=== PATIENT | female | born 1970 | race Caucasian/White ===

== ENCOUNTER 2017-08-13 21:19 | Emergency (ER) | payer OTHER ==
[2017-08-13] MEDS ORDERED: Diphtheria,Pertussis(Acell),Tetanus Vaccine 0.5 ML SDV IM ONE (21:45)
[2017-08-13] MEDS ORDERED: Amoxicillin/Clavulanate K 875-125 MG Tab PO ONE (21:45)
[2017-08-13] MEDS ORDERED: Ibuprofen 600 MG Tab PO ONE (21:45)
--- NOTE | 2017-08-13 21:50 | EDM.PDOC ---
ED HPI GENERAL MEDICAL PROBLEM - General Chief Complaint: Bite:Animal, Insect Stated Complaint: Cat bite Time Seen by Provider: 08/13/17 21:30 Source of Information: Reports: Patient, RN Notes Reviewed History Limitations: Reports: No Limitations - History of Present Illness INITIAL COMMENTS - FREE TEXT/NARRATIVE: 46 year old female presents to the ED due to left arm pain and discomfort after being bit and scratched by her cat about 1.5 hours GRADUATE STUDENT. The pain radiates from her wrist up towards her shoulder. She has a superficial abrasion to her wrist where the cat bit her. She also has some superficial scratches on her forearm and right hand. She has no red streaking. No numbness, tingling, fever or chills. The cat is hers and is up to date on rabies vaccination. She is unsure of her last tetanus but says it's likely been more than 5 years. She has no allergies to medications. Bilateral Hand Pain Score (Numeric/FACES): 5 - Related Data Allergies Allergy/AdvReac Type Severity Reaction Status Date / Time No Known Allergies Allergy Verified 08/13/17 21:28 Home Meds: Home Meds Amoxicillin/Potassium Clav [Augmentin 875-125 Tablet] 1 each PO BID #14 tablet 08/13/17 [Rx] Clonezepam 0.5 mg PO DAILY 08/13/17 [History] Gabepentin 1 tab PO BID 08/13/17 [History] PARoxetine HCl [Paxil] 30 mg PO DAILY 08/13/17 [History] Venlafaxine [Effexor] 150 mg PO DAILY 08/13/17 [History] Past Medical History Musculoskeletal History: Reports: Other (See Below) Other Musculoskeletal History: back surgery Psychiatric History: Reports: Anxiety, Depression - Past Surgical History HEENT Surgical History: Reports: Adenoidectomy, Oral Surgery, Tonsillectomy Female Surgical History: Reports: Hysterectomy Social & Family History - Tobacco Use Smoking Status *Q: Never Smoker - Caffeine Use Caffeine Use: Reports: Coffee - Recreational Drug Use Recreational Drug Use: No ED ROS GENERAL - Review of Systems Review Of Systems: See Below Constitutional: Reports: No Symptoms. Denies: Fever, Chills Musculoskeletal: Reports: Arm Pain Skin: Reports: Wound Neurological: Reports: No Symptoms. Denies: Numbness, Tingling, Weakness ED EXAM, ANIMAL BITE - Physical Exam Exam: See Below Exam Limited By: No Limitations General Appearance: Alert, WD/WN, No Apparent Distress Respiratory/Chest: No Respiratory Distress, Lungs Clear Cardiovascular: Regular Rate, Rhythm Extremities: Normal Inspection, Normal Range of Motion, Non-Tender, Other (No streaking or swelling. ). No: Increased Warmth, Redness Neurological: Alert, Normal Cognition, No Motor/Sensory Deficits, Other (gamma facilities operator strengths are strong and equal bilaterally. No bony abnormality or bony point tenderness. no swelling. ) Skin Exam: Other (superficial abrasion to left wrist. no sutures needed. She has no erythema or streaking. Neurovascular status intact. ) Course - Vital Signs Last Recorded V/S: Last Vital Signs Temp 96.7 F 08/13/17 21:34 Pulse 64 08/13/17 21:34 Resp 20 08/13/17 21:34 BP 114/78 08/13/17 21:34 Pulse Ox 99 08/13/17 21:34 - Re-Assessments/Exams Free Text/Narrative Re-Assessment/Exam: Exam unremarkable except for superficial abrasion. Will treat with Augmentin 1 tab PO BIDx7 days, first dose given in ED. Tdap updated. Ibuprofen provided for pain. Educated on return precautions. Discharge instructions as documented. Departure - Departure Time of Disposition: 21:50 Disposition: Home, Self-Care 01 Condition: Good Clinical Impression: Cat bite involving extremity, Tetanus toxoid inoculation - Discharge Information Prescriptions: Amoxicillin/Potassium Clav [Augmentin 875-125 Tablet] 1 each PO BID #14 tablet Referrals: Maco Christianson MD [Primary Care Provider] - Additional Instructions: Cool compresses for comfort Ibuprofen 600mg every 6-8 hours alternating with Tylenol every 4-6 hours. Augmentin 1 tab twice a day for 7 days Return to ER with new or worsening symptoms, fever, drainage, increasing pain, or additional concerns.
== END 2017-08-13 22:20 | disposition home or self-care (01) ==
LOC: JD.ED 21:19
DX: S60.812A Abrasion of left wrist, initial encounter (principal); S50.811A Abrasion of right forearm, initial encounter; S60.511A Abrasion of right hand, initial encounter; F32.9 Major depressive disorder, single episode, unspecified; Z79.899 Other long term (current) drug therapy; Z23 Encounter for immunization; W55.01XA Bitten by cat, initial encounter
CPT/HCPCS: 90471; 90715; 99283; A9270

== ENCOUNTER 2018-03-13 09:34 | Emergency (ER) | payer OTHER ==
--- NOTE | 2018-03-13 09:55 | EDM.PDOC ---
ED HPI GENERAL MEDICAL PROBLEM - General Chief Complaint: Lower Extremity Injury/Pain Stated Complaint: R KNEE PAIN Time Seen by Provider: 03/13/18 09:54 - History of Present Illness INITIAL COMMENTS - FREE TEXT/NARRATIVE: 47-year-old female presents to the emergency room with right leg and knee pain. She is uncertain if this is coming from her back. She has had a herniated disc in the past and was recently had steroid injections. Patient denies any radiating pain from her back. No loss of bowel or bladder control. She denies any recent injury to her leg or to her back. She does describe a sensation where he knee will lock up and try and give out, where she has a sensation that she might fall. She has noted some swelling in her calf. Right Knee Pain Score (Numeric/FACES): 6 - Related Data Allergies Allergy/AdvReac Type Severity Reaction Status Date / Time No Known Allergies Allergy Verified 08/13/17 21:28 Home Meds: Home Meds PARoxetine HCl [Paxil] 30 mg PO DAILY 08/13/17 [History] Venlafaxine [Effexor] 150 mg PO DAILY 08/13/17 [History] ClonazePAM [KlonoPIN] 0.5 mg PO DAILY 03/13/18 [History] Gabapentin [Neurontin] 100 mg PO DAILY 03/13/18 [History] Past Medical History Musculoskeletal History: Reports: Other (See Below) Other Musculoskeletal History: back surgery Psychiatric History: Reports: Anxiety, Depression - Past Surgical History HEENT Surgical History: Reports: Adenoidectomy, Oral Surgery, Tonsillectomy Female Surgical History: Reports: Hysterectomy Social & Family History - Tobacco Use Smoking Status *Q: Never Smoker - Caffeine Use Caffeine Use: Reports: Coffee - Recreational Drug Use Recreational Drug Use: No Review of Systems - Review of Systems Review Of Systems: See Below Constitutional: Reports: No Symptoms Mouth/Throat: Reports: No Symptoms Respiratory: Reports: No Symptoms Cardiovascular: Reports: No Symptoms GI/Abdominal: Reports: No Symptoms Genitourinary: Reports: No Symptoms ED EXAM, GENERAL - Physical Exam Exam: See Below Exam Limited By: No Limitations General Appearance: Alert, No Apparent Distress Neck: Normal Inspection, Supple, Non-Tender. No: Lymphadenopathy (L), Lymphadenopathy (R), Tender Lateral, Tender Midline Respiratory/Chest: No Respiratory Distress, Lungs Clear, Normal Breath Sounds Cardiovascular: Regular Rate, Rhythm, No Edema, No Murmur Back Exam: Normal Inspection, Other (Distracted straight leg raises are unremarkable patient could set up with her legs fully extended without any sort of difficulty discomfort or pins and needles sensation in her extremities ). No : CVA Tenderness (L), CVA Tenderness (R), Vertebral Tenderness Extremities: Other (Urination her right leg shows no redness or obvious swelling she has some vague discomfort in the calf. Examination of her knee shows intact ACL MCL and LCL. Meniscal testing is somewhat difficult however she doesn't really have significant joint line discomfort. Her discomforts over the anterior lateral aspect of her patella and posteriorly she does have discomfort in the posterior aspect of her knee was potential swelling.) Course - Vital Signs Last Recorded V/S: Last Vital Signs Temp 36.7 C 03/13/18 09:50 Pulse 70 03/13/18 09:50 Resp 20 03/13/18 09:50 BP 127/81 03/13/18 09:50 Pulse Ox 98 03/13/18 09:50 - Orders/Labs/Meds Orders: Active Orders 24 hr Category Date Time Status Knee 3V Rt [CR] Stat Exams 03/13/18 10:04 Taken Labs: Laboratory Tests 03/13/18 Range/Units 11:25 D-Dimer, Quantitative < 0.19 L (0.19-0.50) mg/L Meds: Medications Discontinued Medications Generic Name Dose Route Start Last Admin Trade Name Alondra PRN Reason Stop Dose Admin Fluorescein Sodium Confirm 03/13/18 11:07 03/13/18 11:18 Ful-Leora Administered 03/13/18 11:08 Not Given Dose 0.6 mg .ROUTE .STK-MED ONE Ibuprofen 600 mg 03/13/18 12:17 03/13/18 12:21 Motrin PO 03/13/18 12:18 600 mg ONETIME STA Administration - Re-Assessments/Exams Free Text/Narrative Re-Assessment/Exam: 03/13/18 11:31 X-ray of her knee shows no acute changes she's had some patellar tracking issues with her regular joint spacing. Because of her pain is not clearly understood we'll check a d-dimer think it's low likely that her symptoms represent venous thrombosis. 03/13/18 12:36 D-dimer negative we will discharge her home with crutches. Discussed the knee immobilizer but this is getting to be difficult for her. Recommend orthopedic follow-up. Departure - Departure Time of Disposition: 12:37 Disposition: Home, Self-Care 01 Clinical Impression: Right knee pain - Discharge Information Referrals: Maco Christianson MD [Primary Care Provider] - Berny Garcia MD [Physician] - Forms: ED Department Discharge Additional Instructions: Use the crutches. Follow-up with Dr. Garcia to this next week Continue the ibuprofen. Return to the emergency room with any questions problems or worsening symptoms - My Orders Last 24 Hours: My Active Orders 03/13/18 10:04 Knee 3V Rt [CR] Stat - Assessment/Plan Last 24 Hours: My Active Orders 03/13/18 10:04 Knee 3V Rt [CR] Stat
[2018-03-13] MEDS ORDERED: Fluorescein 0.6 MG Ophth Strip ONE (11:07)
[2018-03-13] MEDS ORDERED: Ibuprofen 600 MG Tab PO STA (12:17)
--- NOTE | 2018-03-15 11:14 | CR ---
Right knee: AP, lateral and sunrise patellar views of the right knee were obtained. Comparison: No prior knee exam. Medial and lateral joint spaces are maintained in height. Minimal joint effusion is seen. Right patellofemoral joint appears within normal limits. No fracture or other abnormality is identified. Impression: 1. Small joint effusion. 2. No additional abnormality is appreciated on three-view right knee exam. Diagnostic code #2
== END 2018-03-13 12:45 | disposition home or self-care (01) ==
LOC: JD.ED 09:34
DX: M25.561 Pain in right knee (principal); F41.9 Anxiety disorder, unspecified; F32.9 Major depressive disorder, single episode, unspecified; Z79.899 Other long term (current) drug therapy
CPT/HCPCS: 36415; 73562; 85379; 99284; A9270; 99283

== ENCOUNTER 2018-09-20 08:12 | Inpatient (IN) | payer OTHER ==
[~2018-09-20 08:12] MED LIST: Acetaminophen 325 MG Tab PO SCH; Bisacodyl 5 MG Tab PO PRN; EPINEPHrine 1 MG/ML SDV ONE; Ketamine 500 mg/10 ML MDV ONE; Lactated Ringers 1,000 ML IV SCH; Lidocaine 1% 4 ML ONE; Lidocaine 1%/Sod Bicarbonate in NS 8.4% 1 ML Syringe IDERM PRN; Magnesium Hydroxide 400 MG/5 ML Susp 30 ML Cup PO PRN; Midazolam 1 MG/ML 2 ML SDV ONE; Morphine 2 MG/ML Syringe IVPUSH PRN; Naloxone 0.4 MG/ML SDV IVPUSH PRN; Ondansetron 4 MG/2 ML SDV IVPUSH PRN; Pregabalin 25 MG Cap PO SCH; Propofol 200 MG/20 ML SDV ONE; Ropivacaine 0.5% 5 MG/ML 30 ML SDV ONE; Sennosides 8.6 MG Tab PO PRN; Sodium Chloride 0.9% 10 ML Syringe FLUSH PRN; fentaNYL 100 MCG/2 ML SDV ONE; oxyCODONE ER 10 MG TAB.ER PO SCH
[2018-09-20] MEDS ORDERED: Dexamethasone 4 MG/ML SDV ONE (08:13)
[2018-09-20] MEDS ORDERED: Ondansetron 4 MG/2 ML SDV ONE (08:13)
[2018-09-20] MEDS ORDERED: Lactated Ringers 1,000 ML ONE (08:13)
[2018-09-20] MEDS ORDERED: ceFAZolin 1 GM Vial ONE (08:13)
[2018-09-20] MEDS ORDERED: Ketorolac 30 MG/ML SDV ONE (08:14)
[2018-09-20] MEDS ORDERED: Scopolamine 1.5 MG Transdermal Patch TRDERM ONE (08:53)
[2018-09-20] MEDS: Bupivacaine 0.25% 30 ML SDV ONE ×2 (09:57→10:17)
[2018-09-20] MEDS: ceFAZolin 1 GM Vial ONE ×2 (09:57→10:14)
[2018-09-20] MEDS: Iodine/Sodium Iodide 2% Tincture 30 ML Bottle ONE ×2 (09:58→10:11)
[2018-09-20] MEDS: Vancomycin 1 GM SDV ONE ×2 (10:00→10:20)
[2018-09-20] MEDS ORDERED: diphenhydrAMINE 50 MG/ML SDV IVPUSH PRN (10:01)
[2018-09-20] MEDS ORDERED: Ondansetron 4 MG/2 ML SDV IVPUSH PRN (10:01)
[2018-09-20] MEDS ORDERED: fentaNYL 100 MCG/2 ML SDV IVPUSH PRN (10:01)
--- NOTE | 2018-09-20 10:01 | PCM.PREANE ---
Preanesthetic Assessment - Anesthesia/Transfusion/Family Hx Anesthesia History: Prior Anesthesia Without Reaction Family History of Anesthesia Reaction: No Transfusion History: Prior Transfusion Without Reaction - Review of Systems General: No Symptoms Pulmonary: No Symptoms Cardiovascular: No Symptoms Gastrointestinal: No Symptoms Neurological: Pre-Existing Deficit (Chronic Back pain. History of Back fusion "lower spine sacral/lumbar". Currently recieves injections to help with back pain. ) Other: Reports: Depression, Anxiety - Physical Assessment NPO Status Date: 09/19/18 NPO Status Time: 23:00 O2 Sat by Pulse Oximetry: 100 Respiratory Rate: 16 Vital Signs: Last Vital Signs Temp 36.8 C 09/20/18 08:20 Pulse 81 09/20/18 08:20 Resp 16 09/20/18 08:20 BP 128/85 09/20/18 08:20 Pulse Ox 100 09/20/18 08:20 Height: 1.55 m Weight: 63.957 kg ASA Class: 2 Mental Status: Alert & Oriented x3 Airway Class: Mallampati = 1 Dentition: Reports: Caries Thyro-Mental Finger Breadths: 2 Mouth Opening Finger Breadths: 3 ROM/Head Extension: Full Lungs: Clear to Auscultation, Normal Respiratory Effort Cardiovascular: Regular Rate, Regular Rhythm - Allergies Allergies/Adverse Reactions: Allergies Allergy/AdvReac Type Severity Reaction Status Date / Time No Known Allergies Allergy Verified 09/17/18 11:15 - Acknowledgements Anesthesia Type Planned: Spinal, Regional Block (Adductor Canal Block Post Op) Pt an Appropriate Candidate for the Planned Anesthesia: Yes Alternatives and Risks of Anesthesia Discussed w Pt/Guardian: Yes Pt/Guardian Understands and Agrees with Anesthesia Plan: Yes PreAnesthesia Questionnaire HEENT History: Reports: Allergic Rhinitis, Impaired Vision, Other (See Below) Other HEENT History: Patient wears eye glasses and/or contact lenses. 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 (See Below) Other OB/BYN History: Hysterectomy with bilateral salpingectomy and oophoretomy Musculoskeletal History: Reports: Back Pain, Chronic, Osteoarthritis Other Musculoskeletal History: back surgery Psychiatric History: Reports: Depression Endocrine/Metabolic History: Reports: Diabetes, Gestational Other Endocrine/Metabolic History: Lumbar DDD - Past Surgical History HEENT Surgical History: Reports: Adenoidectomy, Tonsillectomy, Other (See Below) Other HEENT Surgeries/Procedures: Tube placement Cardiovascular Surgical History: Reports: None Respiratory Surgical History: Reports: None GI Surgical History: Reports: None Female Surgical History: Reports: Hysterectomy Endocrine Surgical History: Reports: None Neurological Surgical History: Reports: Lumbar Spine Other Neurological Surgeries/Procedures: Lumbar back surgery Dermatological Surgical History: Reports: None - SUBSTANCE USE Tobacco Use Within Last Twelve Months: No Days Per Week of Alcohol Use: 1 Number of Drinks Per Day: 0 Total Drinks Per Week: 0 Recreational Drug Use History: No - HOME MEDS Home Medications: Home Meds PARoxetine HCl [Paxil] 20 mg PO DAILY 08/13/17 [History] Venlafaxine [Effexor] 150 mg PO DAILY 08/13/17 [History] RX: ClonazePAM [KlonoPIN] 0.5 mg PO BEDTIME 03/13/18 [History] Acetaminophen [Tylenol] 1 - 2 tab PO Q4H PRN 09/17/18 [History] Calcium Carb/Magnesium Oxid/D3 [Calcium Magnesium + D] 1 tab PO DAILY 09/17/18 [ History] Ergocalciferol (Vitamin D2) [Vitamin D2] 4,000 unit PO DAILY 09/17/18 [History] - CURRENT (IN HOUSE) MEDS Current Meds: Current Medications Acetaminophen (Tylenol) 975 mg PO ONETIME [facility] Stop: 09/20/18 16:00 Last Admin: 09/20/18 08:22 Dose: 975 mg Aspirin (Ecotrin) 325 mg PO BID LUIZ Bisacodyl (Dulcolax) 5 mg PO DAILY PRN PRN Reason: Constipation Morphine Sulfate 8 mg/Epinephrine HCl 0.3 mg/Cefuroxime Sodium 750 mg/Ketorolac Tromethamine 30 mg/Sodium Chloride 27.9 ml 0 mg .XX ONETIME ONE Stop: 09/20/18 10:06 Cyclobenzaprine HCl (Flexeril) 10 mg PO TID PRN PRN Reason: Spasms Docusate Sodium (Colace) 100 mg PO BID LUIZ Famotidine (Pepcid) 20 mg PO Q12H LUIZ Lactated Ringer's (Ringers, Lactated) 1,000 mls @ 125 mls/hr IV ASDIRECTED LUIZ Stop: 09/20/18 23:00 Last Admin: 09/20/18 08:40 Dose: 125 mls/hr Cefazolin Sodium/Dextrose 2 gm (/ Premix) 50 mls @ 100 mls/hr IV Q8H [facility] Stop: 09/21/18 10:29 Ketorolac Tromethamine (Toradol) 15 mg IVPUSH Q6H PRN PRN Reason: Pain Lidocaine/Sodium Bicarbonate (Buffered Lidocaine 1% In Ns 8.4%) 0.25 ml IDERM ONETIME PRN PRN Reason: Prior to IV Start Stop: 09/20/18 18:00 Last Admin: 09/20/18 08:40 Dose: 0.25 ml Magnesium Hydroxide (Milk Of Magnesia) 30 ml PO BID PRN PRN Reason: Constipation Morphine Sulfate (Morphine) 2 mg IVPUSH Q2H PRN PRN Reason: Breakthrough Pain Naloxone HCl (Narcan) 0.1 mg IVPUSH Q5M PRN PRN Reason: Oversedation Ondansetron HCl (Zofran) 4 mg IVPUSH Q6H PRN PRN Reason: Nausea/Vomiting Oxycodone HCl (Oxycontin) 10 mg PO ONETIME [facility] Stop: 09/20/18 16:00 Last Admin: 09/20/18 08:21 Dose: 10 mg Oxycodone/Acetaminophen (Percocet 325-5 Mg) 1 - 2 tab PO Q4H PRN PRN Reason: Pain Pregabalin (Lyrica) 50 mg PO ONETIME [facility] Stop: 09/20/18 16:00 Last Admin: 09/20/18 08:22 Dose: 50 mg Senna (Senna) 8.6 mg PO BID PRN PRN Reason: Constipation Sodium Chloride (Saline Flush) 10 ml FLUSH ASDIRECTED PRN PRN Reason: Keep Vein Open Stop: 09/20/18 18:00 Discontinued Medications Bupivacaine HCl (Marcaine 0.25%) Confirm Administered Dose 30 ml .ROUTE .STK- MED ONE Stop: 09/20/18 08:21 Cefazolin Sodium (Ancef) Confirm Administered Dose 2 gm .ROUTE .STK-MED ONE Stop: 09/20/18 08:14 Cefazolin Sodium (Ancef) Confirm Administered Dose 2 gm .ROUTE .STK-MED ONE Stop: 09/20/18 08:21 Dexamethasone (Dexamethasone) Confirm Administered Dose 8 mg .ROUTE .STK-MED ONE Stop: 09/20/18 08:14 Epinephrine HCl (Adrenalin) Confirm Administered Dose 1 mg .ROUTE .STK-MED ONE Stop: 09/20/18 07:25 Fentanyl (Sublimaze) Confirm Administered Dose 100 mcg .ROUTE .ST-MED ONE Stop: 09/20/18 07:32 Lidocaine HCl (Xylocaine-Mpf 1%) Confirm Administered Dose 4 mls @ as directed .ROUTE .ST-MED ONE Stop: 09/20/18 07:33 Lactated Ringer's (Ringers, Lactated) Confirm Administered Dose 2,000 mls @ as directed .ROUTE .STK-MED ONE Stop: 09/20/18 08:14 Iodine (Iodine 2% Mild Tincture) Confirm Administered Dose 30 ml .ROUTE .ST- MED ONE Stop: 09/20/18 08:21 Ketamine HCl (Ketalar) Confirm Administered Dose 500 mg .ROUTE .ST-MED ONE Stop: 09/20/18 07:32 Ketorolac Tromethamine (Toradol) Confirm Administered Dose 30 mg .ROUTE .[facility]- MED ONE Stop: 09/20/18 08:15 Midazolam HCl (Versed 1 Mg/Ml) Confirm Administered Dose 2 mg .ROUTE .ST-MED ONE Stop: 09/20/18 07:32 Ondansetron HCl (Zofran) Confirm Administered Dose 4 mg .ROUTE .ST-MED ONE Stop: 09/20/18 08:14 Propofol (Diprivan 20 Ml) Confirm Administered Dose 600 mg .ROUTE .ST-MED ONE Stop: 09/20/18 07:32 Ropivacaine (Naropin 0.5%) Confirm Administered Dose 30 ml .ROUTE .ST-MED ONE Stop: 09/20/18 07:25 Scopolamine (Transderm-Scop) 1.5 mg TRDERM Q72H ONE Stop: 09/20/18 08:54 Last Admin: 09/20/18 09:03 Dose: 1.5 mg Tranexamic Acid (Cyklokapron) Confirm Administered Dose 1,000 mg .ROUTE .STK- MED ONE Stop: 09/20/18 08:20 Vancomycin HCl (Vancomycin) Confirm Administered Dose 1 gm .ROUTE .STK-MED ONE Stop: 09/20/18 08:20
[2018-09-20] MEDS: Morphine 8 MG, EPINEPHrine 0.3 MG, Cefuroxime 750 MG, Ketorolac 30 MG, Sodium Chloride ... ONE ×10 (10:16→12:10)
--- NOTE | 2018-09-20 10:58 | PCM.POSTAN ---
POST ANESTHESIA ASSESSMENT - MENTAL STATUS Mental Status: Alert, Oriented - VITAL SIGNS Pulse Rate: 110 SaO2: 99 Resp Rate: 18 Blood Pressure: 113/60 Temperature: 37.3 C - RESPIRATORY Respiratory Status: Respiratory Rate WNL, Airway Patent, O2 Saturation Stable, Supplemental Oxygen - CARDIOVASCULAR CV Status: Pulse Rate WNL, Blood Pressure Stable - GASTROINTESTINAL GI Status: No Symptoms - PAIN Pain Score: 0 - POST OP HYDRATION Hydration Status: Adequate & Stable
--- NOTE | 2018-09-20 11:28 | PCM.SN ---
- Free Text/Narrative Note: Right selective femoral nerve block at the adductor canal for post-procedure pain control under US guidance requested by Dr. Garcia. Time Out: 1111 Start: 1116 End: 1121 Chart reviewed. Consent signed. Questions answered. Appropriate monitors applied. Time out performed. Right mid-shaft femur identified with ultrasound, scanning medially of femur, the femoral artery in the adductor canal visualized , and the femoral nerve located laterally to the artery. The skin was prepped lateral to the ultrasound probe with chlorahexadine times two. The 21ga 4 insulated block needle was inserted under direct ultrasound guidance into the adductor canal. 25mL of 0.5% ropivacaine with 1:200,000 epinephrine was injected circumferentially around the nerve with intermittent negative aspiration noted. Patient tolerated the procedure well. Sterile technique noted along with sterile gloves, mask, and sterile probe cover. See picture on progress note and vital signs on nurses notes. Block completed in PACU. Stefan Galo CRNA
--- NOTE | 2018-09-20 12:47 | CR ---
Right knee: Two views of the right knee were obtained. Comparison: Prior right knee study of 03/13/18. Knee prosthesis is seen. Components are aligned. Underlying bony structures are intact. No fracture or other abnormality is seen. Soft tissue air is noted from the surgical procedure. Impression: 1. Satisfactory postoperative radiographic appearance of recently placed right knee prosthesis. Diagnostic code #2
--- NOTE | 2018-09-20 13:20 | PCM.CONS ---
H&P History of Present Illness - General Date of Service: 09/20/18 Admit Problem/Dx: Admission Diagnosis/Problem Admission Diagnosis/Problem Osteoarthritis of knee Source of Information: Patient History Limitations: Reports: No Limitations - History of Present Illness Initial Comments - Free Text/Narative: Edmar is a 48 yo female patient of Dr. Garcia who is post-operative day 0 of R TKA. Hospital medicine was consulted for post-operative medical care. At this time she is stable. Pain is controlled. She denies any chest pain, shortness of breath, palpitations, nausea, or vomiting. She carries a history of: Total hysterectomy, back pain, lumbar DDD s/p surgery, OA, Depression. She is not a smoker. He is a full code. Her PCP is Dr. Maco Guadarrama. - Related Data Allergies/Adverse Reactions: Allergies Allergy/AdvReac Type Severity Reaction Status Date / Time No Known Allergies Allergy Verified 09/17/18 11:15 Home Medications: Home Meds PARoxetine HCl [Paxil] 20 mg PO DAILY 08/13/17 [History] Venlafaxine [Effexor] 150 mg PO DAILY 08/13/17 [History] ClonazePAM [KlonoPIN] 0.25 mg PO BEDTIME 03/13/18 [History] Calcium Carb/Magnesium Oxid/D3 [Calcium Magnesium + D] 2 tab PO DAILY 09/17/18 [ History] Ergocalciferol (Vitamin D2) [Vitamin D2] 4,000 unit PO DAILY 09/17/18 [History] Acetaminophen/oxyCODONE [Percocet 325-5 MG] 1 - 2 tab PO Q6H PRN #60 tablet [Rx] Aspirin [Ecotrin] 325 mg PO BID #84 tab.ec 09/20/18 [Rx] Bisacodyl [Dulcolax] 5 mg PO DAILY PRN tablet 09/20/18 [Rx] Cyclobenzaprine [Flexeril] 10 mg PO BID PRN #30 tablet 09/20/18 [Rx] Docusate Sodium [Colace] 100 mg PO BID cap 09/20/18 [Rx] Famotidine [Pepcid] 20 mg PO Q12H tablet 09/20/18 [Rx] Magnesium Hydroxide [Milk of Magnesia] 30 ml PO BID PRN cup 09/20/18 [Rx] Sennosides [Senna] 8.6 mg PO BID PRN tablet 09/20/18 [Rx] Past Medical History HEENT History: Reports: Allergic Rhinitis, Impaired Vision, Other (See Below) Other HEENT History: Patient wears eye glasses and/or contact lenses. 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 (See Below) Other OB/BYN History: Hysterectomy with bilateral salpingectomy and oophoretomy Musculoskeletal History: Reports: Back Pain, Chronic, Osteoarthritis Other Musculoskeletal History: back surgery Psychiatric History: Reports: Depression Endocrine/Metabolic History: Reports: Diabetes, Gestational Other Endocrine/Metabolic History: Lumbar DDD - Infectious Disease History Infectious Disease History: Reports: Chicken Pox - Past Surgical History HEENT Surgical History: Reports: Adenoidectomy, Tonsillectomy, Other (See Below) Other HEENT Surgeries/Procedures: Tube placement Cardiovascular Surgical History: Reports: None Respiratory Surgical History: Reports: None GI Surgical History: Reports: None Female Surgical History: Reports: Hysterectomy Endocrine Surgical History: Reports: None Neurological Surgical History: Reports: Lumbar Spine Other Neurological Surgeries/Procedures: Lumbar back surgery Dermatological Surgical History: Reports: None Social & Family History - Family History Family Medical History: Unobtainable - Tobacco Use Smoking Status *Q: Never Smoker - Caffeine Use Caffeine Use: Reports: Coffee Other Caffeine Use: one cup per day - Alcohol Use Days Per Week of Alcohol Use: 1 Number of Drinks Per Day: 0 Total Drinks Per Week: 0 - Recreational Drug Use Recreational Drug Use: No Drug Use in Last 12 Months: No H&P Review of Systems - Review of Systems: Review Of Systems: See Below General: Reports: No Symptoms. Denies: Fever, Chills HEENT: Reports: No Symptoms Pulmonary: Reports: No Symptoms. Denies: Shortness of Breath, Cough Cardiovascular: Reports: No Symptoms. Denies: Chest Pain Gastrointestinal: Reports: No Symptoms. Denies: Abdominal Pain, Diarrhea, Nausea, Vomiting Genitourinary: Reports: No Symptoms. Denies: Dysuria, Frequency, Burning, Pain , Urgency Musculoskeletal: Reports: No Symptoms Skin: Reports: No Symptoms Psychiatric: Reports: No Symptoms Neurological: Reports: No Symptoms Hematologic/Lymphatic: Reports: No Symptoms Immunologic: Reports: No Symptoms Exam - Exam Exam: See Below - Vital Signs Vital Signs: Last Vital Signs Temp 99.1 F 09/20/18 10:58 Pulse 97 09/20/18 13:02 Resp 16 09/20/18 13:04 BP 115/68 09/20/18 13:02 Pulse Ox 98 09/20/18 13:02 Weight: 141 lb - Exam Quality Assessment: DVT Prophylaxis General: Alert, Oriented, Cooperative HEENT: Conjunctiva Clear, EACs Clear, EOMI, Hearing Intact, Mucosa Moist & [place] , Nares Patent, Normal Nasal Septum, Posterior Pharynx Clear, PERRLA Neck: Supple, Trachea Midline, 2 Lungs: Clear to Auscultation, Normal Respiratory Effort Cardiovascular: Regular Rate, Regular Rhythm GI/Abdominal Exam: Normal Bowel Sounds, Soft, Non-Tender, No Organomegaly, No Distention, No Abnormal Bruit, No Mass, Pelvis Stable (Female) Exam: Deferred Rectal (Female) Exam: Deferred Back Exam: Normal Inspection Extremities: Normal Inspection, Non-Tender, No Pedal Edema, Normal Capillary Refill, Limited Range of Motion (S/P R TKA) Peripheral Pulses: 2+: Posterior Tibial (L), Posterior Tibial (R), Dorsalis Pedis (L), Dorsalis Pedis (R) Skin: Warm, Dry, Intact, Other (bandage dry and intact) Neurological: Cranial Nerves Intact (grossly) Neuro Extensive - Mental Status: Alert, Oriented x3, Normal Mood/Affect, Normal Cognition, Memory Intact Psychiatric: Alert, Normal Affect, Normal Mood Consult PN Assessment/Plan POD#: 0 Procedures: Procedures ASSAY GLUCOSE BLOOD QUANT (04/01/18) ASSAY OF VITAMIN B-6 (09/24/16) ASSAY THYROID STIM HORMONE (01/14/18) COMP SCREEN MAMMOGRAM ADD-ON (07/25/15) COMPLETE CBC W/AUTO DIFF WBC (01/14/18) DXA BONE DENSITY AXIAL (04/06/14) EMERGENCY DEPT VISIT (03/13/18) EMERGENCY DEPT VISIT (08/13/17) FIBRIN DEGRADATION QUANT (03/13/18) GLYCOSYLATED HEMOGLOBIN TEST (04/01/18) IMMUNIZATION ADMIN (08/13/17) LIPID PANEL (01/14/18) MANUAL THERAPY 1/> REGIONS (04/13/14) MEDICAL NUTRITION INDIV IN (08/21/15) PT EVALUATION (04/13/14) ROUTINE VENIPUNCTURE (04/01/18) TDAP VACCINE 7 YRS/> IM (08/13/17) THERAPEUTIC EXERCISES (04/13/14) ULTRASOUND THERAPY (04/13/14) VITAMIN B-12 (09/24/16) VITAMIN D 25 HYDROXY (12/04/16) X-RAY EXAM OF KNEE 3 (03/13/18) (1) S/P total knee arthroplasty SNOMED Code(s): 3181856889700, 162373663, 2549863630552 Code(s): Z96.659 - PRESENCE OF UNSPECIFIED ARTIFICIAL KNEE JOINT Priority: High Current Visit: Yes Qualifiers: Laterality: right Qualified Code(s): Z96.651 - Presence of right artificial knee joint Problem List Initiated/Reviewed/Updated: Yes Plan: I/P: Acute: S/P right total knee arthroplasty - post-operative day 0 -DVT prophylaxis and pain management per primary care team -PT/OT -IS/RT -Monitor oxygen saturation -Titrate oxygen as needed -Vital signs stable -Monitor labs Osteoarthritis of Knee -Pain management per primary care team Chronic: Total hysterectomy Back pain Lumbar DDD s/p surgery OA Depression Plan: CM for discharge planning GI prophylaxis: Pepcid DVT/PE prophylaxis: ASA, NESSA hose, SCD Home medications as indicated Other orders as listed above Routine AM labs She is a full code. Her PCP is Dr. Maco Guadarrama. Thank you for allowing us to participate in the care of this patient!
[2018-09-20] MEDS: Acetaminophen/oxyCODONE 325-5 MG Tab PO PRN ×3 (14:30→23:51)
[2018-09-20] MEDS: ceFAZolin 2 GM in Premix Bag 1 BAG IV SCH (17:29)
[2018-09-20] MEDS: Ketorolac 15 MG/ML SDV IVPUSH PRN (19:30)
[2018-09-20] MEDS: Famotidine 20 MG Tab PO SCH (20:10)
[2018-09-20] MEDS: Docusate Sodium 100 MG Cap PO SCH (20:10)
[2018-09-20] MEDS ORDERED: ClonazePAM 0.5 MG Tab PO SCH (21:00)
[2018-09-20] MEDS: Cyclobenzaprine 10 MG Tab PO PRN (23:51)
[2018-09-21] MEDS: ceFAZolin 2 GM in Premix Bag 1 BAG IV SCH ×2 (03:22→09:45)
[2018-09-21] MEDS: Acetaminophen/oxyCODONE 325-5 MG Tab PO PRN ×3 (03:57→11:57)
[2018-09-21] MEDS: Ketorolac 15 MG/ML SDV IVPUSH PRN (03:58)
--- NOTE | 2018-09-21 06:49 | PCM.CONSN ---
- General Info Date of Service: 09/21/18 Admission Dx/Problem (Free Text): Admission Diagnosis/Problem Admission Diagnosis/Problem Osteoarthritis of knee Subjective Update: In to see Edmar. She is laying in bed. She is currently very tired, but it is also early in the morning. She has no current complaints, just some 3/10 leg pain which is manageable. At its worst she said it went up to 8-9/10 yesterday. She is working with therapy. She is ambulating. She is urinating. No concerns from nursing. She will likely D/C today pending primary team decision. Functional Status: Reports: Pain Controlled, Tolerating Diet, Ambulating, Urinating, Incentive Spirometry - Review of Systems General: Reports: No Symptoms. Denies: Fever, Chills HEENT: Reports: No Symptoms Pulmonary: Reports: No Symptoms. Denies: Shortness of Breath, Cough Cardiovascular: Reports: No Symptoms. Denies: Chest Pain Gastrointestinal: Reports: No Symptoms. Denies: Abdominal Pain, Diarrhea, Nausea, Vomiting Genitourinary: Reports: No Symptoms Musculoskeletal: Reports: Joint Pain (s/p RTKA) Skin: Reports: No Symptoms Neurological: Reports: No Symptoms Psychiatric: Reports: No Symptoms - Patient Data Vitals - Most Recent: Last Vital Signs Temp 98.1 F 09/21/18 04:04 Pulse 66 09/21/18 04:04 Resp 18 09/21/18 04:04 BP 105/60 09/21/18 04:04 Pulse Ox 95 09/21/18 04:04 Weight - Most Recent: 146 lb 9 oz I&O - Last 24 Hours: Intake & Output 09/20/18 09/20/18 09/21/18 14:59 22:59 06:59 Intake Total 0 1600 1200 Output Total 3650 Balance 0 1600 -2450 Lab Results Last 24 Hours: Laboratory Results - last 24 hr 09/21/18 Range/Units 05:10 WBC 9.20 (3.98-10.04) K/mm3 RBC 3.50 L (3.98-5.22) M/mm3 Hgb 9.9 L (11.2-15.7) gm/L Hct 31.7 L (34.1-44.9) % MCV 90.6 (79.4-94.8) fl MCH 28.3 (25.6-32.2) pg MCHC 31.2 L (32.2-35.5) g/dl RDW Std Deviation 45.9 (36.4-46.3) fL Plt Count 229 (182-369) K/mm3 MPV 10.4 (9.4-12.3) fl Med Orders - Current: Current Medications Aspirin (Ecotrin) 325 mg PO BID [facility] Bisacodyl (Dulcolax) 5 mg PO DAILY PRN PRN Reason: Constipation Calcium Carbonate (Calcium Carbonate/Vitamin D 600 Mg-200 Unit) 2 tab PO DAILY [facility] Clonazepam (Klonopin) 0.5 mg PO BEDTIME [facility] Last Admin: 09/20/18 20:10 Dose: 0.5 mg Cyclobenzaprine HCl (Flexeril) 10 mg PO TID PRN PRN Reason: Spasms Last Admin: 09/20/18 23:51 Dose: 10 mg Docusate Sodium (Colace) 100 mg PO BID [facility] Last Admin: 09/20/18 20:10 Dose: 100 mg Famotidine (Pepcid) 20 mg PO Q12H [facility] Last Admin: 09/20/18 20:10 Dose: 20 mg Cefazolin Sodium/Dextrose 2 gm (/ Premix) 50 mls @ 100 mls/hr IV Q8H [facility] Stop: 09/21/18 10:29 Last Admin: 09/21/18 03:22 Dose: 100 mls/hr Ketorolac Tromethamine (Toradol) 15 mg IVPUSH Q6H PRN PRN Reason: Pain Last Admin: 09/21/18 03:58 Dose: 15 mg Magnesium Hydroxide (Milk Of Magnesia) 30 ml PO BID PRN PRN Reason: Constipation Morphine Sulfate (Morphine) 2 mg IVPUSH Q2H PRN PRN Reason: Breakthrough Pain Naloxone HCl (Narcan) 0.1 mg IVPUSH Q5M PRN PRN Reason: Oversedation Ondansetron HCl (Zofran) 4 mg IVPUSH Q6H PRN PRN Reason: Nausea/Vomiting Oxycodone/Acetaminophen (Percocet 325-5 Mg) 1 - 2 tab PO Q4H PRN PRN Reason: Pain Last Admin: 09/21/18 03:57 Dose: 2 tab Paroxetine HCl (Paxil) 20 mg PO DAILY [facility] Senna (Senna) 8.6 mg PO BID PRN PRN Reason: Constipation Venlafaxine HCl (Effexor Xr) 150 mg PO DAILY [facility] Discontinued Medications Acetaminophen (Tylenol) 975 mg PO ONETIME [facility] Stop: 09/20/18 16:00 Last Admin: 09/20/18 08:22 Dose: 975 mg Bupivacaine HCl (Marcaine 0.25%) Confirm Administered Dose 30 ml .ROUTE .STK- MED ONE Stop: 09/20/18 08:21 Last Admin: 09/20/18 10:17 Dose: 30 ml Cefazolin Sodium (Ancef) Confirm Administered Dose 2 gm .ROUTE .STK-MED ONE Stop: 09/20/18 08:14 Cefazolin Sodium (Ancef) Confirm Administered Dose 2 gm .ROUTE .STK-MED ONE Stop: 09/20/18 08:21 Last Admin: 09/20/18 10:14 Dose: 2 gm Morphine Sulfate 8 mg/Epinephrine HCl 0.3 mg/Cefuroxime Sodium 750 mg/Ketorolac Tromethamine 30 mg/Sodium Chloride 27.9 ml 0 mg .XX ONETIME ONE Stop: 09/20/18 10:06 Last Admin: 09/20/18 12:10 Dose: Not Given Dexamethasone (Dexamethasone) Confirm Administered Dose 8 mg .ROUTE .STK-MED ONE Stop: 09/20/18 08:14 Diphenhydramine HCl (Benadryl) 25 mg IVPUSH Q6H PRN PRN Reason: Pruritis Stop: 09/20/18 18:00 Epinephrine HCl (Adrenalin) Confirm Administered Dose 1 mg .ROUTE .STK-MED ONE Stop: 09/20/18 07:25 Fentanyl (Sublimaze) Confirm Administered Dose 100 mcg .ROUTE .STK-MED ONE Stop: 09/20/18 07:32 Fentanyl (Sublimaze) 50 mcg IVPUSH Q5M PRN PRN Reason: Pain Stop: 09/20/18 16:00 Lactated Ringer's (Ringers, Lactated) 1,000 mls @ 125 mls/hr IV ASDIRECTED [facility] Stop: 09/20/18 23:00 Last Admin: 09/20/18 08:40 Dose: 125 mls/hr Lidocaine HCl (Xylocaine-Mpf 1%) Confirm Administered Dose 4 mls @ as directed .ROUTE .STK-MED ONE Stop: 09/20/18 07:33 Lactated Ringer's (Ringers, Lactated) Confirm Administered Dose 1,000 mls @ as directed .ROUTE .[facility] ONE Stop: 09/20/18 08:14 Iodine (Iodine 2% Mild Tincture) Confirm Administered Dose 30 ml .ROUTE .[facility] ONE Stop: 09/20/18 08:21 Last Admin: 09/20/18 10:11 Dose: 18 ml Ketamine HCl (Ketalar) Confirm Administered Dose 500 mg .ROUTE .[facility] ONE Stop: 09/20/18 07:32 Ketorolac Tromethamine (Toradol) Confirm Administered Dose 30 mg .ROUTE .[facility] ONE Stop: 09/20/18 08:15 Lidocaine/Sodium Bicarbonate (Buffered Lidocaine 1% In Ns 8.4%) 0.25 ml IDERM ONETIME PRN PRN Reason: Prior to IV Start Stop: 09/20/18 18:00 Last Admin: 09/20/18 08:40 Dose: 0.25 ml Midazolam HCl (Versed 1 Mg/Ml) Confirm Administered Dose 2 mg .ROUTE .[facility] ONE Stop: 09/20/18 07:32 Non-Formulary Medication (Ergocalciferol (Vitamin D2) [Vitamin D2]) 4,000 unit PO DAILY [facility] Ondansetron HCl (Zofran) Confirm Administered Dose 4 mg .ROUTE .[facility] ONE Stop: 09/20/18 08:14 Ondansetron HCl (Zofran) 4 mg IVPUSH ONETIME PRN PRN Reason: Nausea/Vomiting Stop: 09/20/18 16:00 Oxycodone HCl (Oxycontin) 10 mg PO ONETIME [facility] Stop: 09/20/18 16:00 Last Admin: 09/20/18 08:21 Dose: 10 mg Pregabalin (Lyrica) 50 mg PO ONETIME [facility] Stop: 09/20/18 16:00 Last Admin: 09/20/18 08:22 Dose: 50 mg Propofol (Diprivan 20 Ml) Confirm Administered Dose 600 mg .ROUTE .[facility]-MED ONE Stop: 09/20/18 07:32 Ropivacaine (Naropin 0.5%) Confirm Administered Dose 30 ml .ROUTE .[facility] ONE Stop: 09/20/18 07:25 Scopolamine (Transderm-Scop) 1.5 mg TRDERM Q72H ONE Stop: 09/20/18 08:54 Last Admin: 09/20/18 09:03 Dose: 1.5 mg Sodium Chloride (Saline Flush) 10 ml FLUSH ASDIRECTED PRN PRN Reason: Keep Vein Open Stop: 09/20/18 18:00 Tranexamic Acid (Cyklokapron) Confirm Administered Dose 1,000 mg .ROUTE .STK- MED ONE Stop: 09/20/18 08:20 Last Admin: 09/20/18 10:18 Dose: 1,000 mg Vancomycin HCl (Vancomycin) Confirm Administered Dose 1 gm .ROUTE .STK-MED ONE Stop: 09/20/18 08:20 Last Admin: 09/20/18 10:20 Dose: 1 gm - Exam Quality Assessment: DVT Prophylaxis General: Alert, Oriented, Cooperative, No Acute Distress HEENT: Pupils Equal, Pupils Reactive, EOMI, Mucous Membr. Moist/[place] Neck: Supple Lungs: Clear to Auscultation, Normal Respiratory Effort Cardiovascular: Regular Rate, Regular Rhythm GI/Abdominal Exam: Normal Bowel Sounds, Soft, Non-Tender, No Organomegaly, No Distention, No Abnormal Bruit, No Mass, Pelvis Stable (Female) Exam: Deferred Back Exam: Normal Inspection Extremities: Normal Inspection, Non-Tender, No Pedal Edema, Normal Capillary Refill, Limited Range of Motion (s/p R TKA) Peripheral Pulses: 2+: Posterior Tibial (L), Posterior Tibial (R), Dorsalis Pedis (L), Dorsalis Pedis (R) Skin: Warm, Dry, Intact Wound/Incisions: Healing Well, Dressing Dry and Intact, No Drainage Neurological: No New Focal Deficit Psy/Mental Status: Alert, Normal Affect, Normal Mood Consult PN Assessment/Plan POD#: 1 Procedures: Procedures ASSAY GLUCOSE BLOOD QUANT (04/01/18) ASSAY OF VITAMIN B-6 (09/24/16) ASSAY THYROID STIM HORMONE (01/14/18) COMP SCREEN MAMMOGRAM ADD-ON (07/25/15) COMPLETE CBC W/AUTO DIFF WBC (01/14/18) DXA BONE DENSITY AXIAL (04/06/14) EMERGENCY DEPT VISIT (03/13/18) EMERGENCY DEPT VISIT (08/13/17) FIBRIN DEGRADATION QUANT (03/13/18) GLYCOSYLATED HEMOGLOBIN TEST (04/01/18) IMMUNIZATION ADMIN (08/13/17) LIPID PANEL (01/14/18) MANUAL THERAPY 1/> REGIONS (04/13/14) MEDICAL NUTRITION INDIV IN (08/21/15) MR-STAPH DNA AMP PROBE (09/15/18) PT EVALUATION (04/13/14) ROUTINE VENIPUNCTURE (04/01/18) TDAP VACCINE 7 YRS/> IM (08/13/17) THERAPEUTIC EXERCISES (04/13/14) ULTRASOUND THERAPY (04/13/14) VITAMIN B-12 (09/24/16) VITAMIN D 25 HYDROXY (12/04/16) X-RAY EXAM OF KNEE 3 (03/13/18) (1) S/P total knee arthroplasty SNOMED Code(s): 8784688046436, [id number], [id number] Code(s): Z96.659 - PRESENCE OF UNSPECIFIED ARTIFICIAL KNEE JOINT Priority: High Current Visit: Yes Qualifiers: Laterality: right Qualified Code(s): Z96.651 - Presence of right artificial knee joint Problem List Initiated/Reviewed/Updated: Yes Plan: I/P: Acute: S/P right total knee arthroplasty - post-operative day 1 -DVT prophylaxis and pain management per primary care team -PT/OT -IS/RT -Monitor oxygen saturation -Titrate oxygen as needed -Vital signs stable -Monitor labs Hgb 9.9 Osteoarthritis of Knee -Pain management per primary care team Chronic: Total hysterectomy Back pain Lumbar DDD s/p surgery OA Depression Plan: CM for discharge planning GI prophylaxis: Pepcid DVT/PE prophylaxis: ASA, NESSA hose, SCD Home medications as indicated Other orders as listed above Routine AM labs She is a full code. Her PCP is Dr. Maco Guadarrama. Thank you for allowing us to participate in the care of this patient! From a Hospitalist standpoint, the pt is ready for discharge pending primary team decision.
--- NOTE | 2018-09-21 08:01 | PCM.SURGPN ---
- General Info Date of Service: 09/21/18 POD#: 1 Functional Status: Reports: Pain Controlled, Tolerating Diet, Ambulating, Urinating, Incentive Spirometry, Other (The pt notes "stiffness" at the knee.) - Patient Data Vitals - Most Recent: Last Vital Signs Temp 98.1 F 09/21/18 04:04 Pulse 66 09/21/18 04:04 Resp 18 09/21/18 04:04 BP 105/60 09/21/18 04:04 Pulse Ox 95 09/21/18 04:04 Weight - Most Recent: 146 lb 9 oz I&O - Last 24 Hours: Intake & Output 09/20/18 09/21/18 09/21/18 22:59 06:59 14:59 Intake Total 1600 1200 Output Total 3650 Balance 1600 -2450 Lab Results Last 24 Hrs: Laboratory Results - last 24 hr 09/21/18 09/21/18 Range/Units 05:10 05:10 WBC 9.20 (3.98-10.04) K/mm3 RBC 3.50 L (3.98-5.22) M/mm3 Hgb 9.9 L (11.2-15.7) gm/L Hct 31.7 L (34.1-44.9) % MCV 90.6 (79.4-94.8) fl MCH 28.3 (25.6-32.2) pg MCHC 31.2 L (32.2-35.5) g/dl RDW Std Deviation 45.9 (36.4-46.3) fL Plt Count 229 (182-369) K/mm3 MPV 10.4 (9.4-12.3) fl Sodium 140 (136-145) mEq/L Potassium 4.0 (3.5-5.1) mEq/L Chloride 105 (98-107) mEq/L Carbon Dioxide 27 (21-32) mEq/L Anion Gap 12.0 (5-15) BUN 13 (7-18) mg/dL Creatinine 0.8 (0.55-1.02) mg/dL Est Cr Clr Drug Dosing 66.31 mL/min Estimated GFR (MDRD) > 60 (>60) mL/min BUN/Creatinine Ratio 16.3 (14-18) Glucose 167 H (74-106) mg/dL Calcium 8.6 (8.5-10.1) mg/dL Total Bilirubin 0.1 L (0.2-1.0) mg/dL AST 18 (15-37) U/L ALT 25 (14-59) U/L Alkaline Phosphatase 67 (46-116) U/L Total Protein 5.7 L (6.4-8.2) g/dl Albumin 3.1 L (3.4-5.0) g/dl Globulin 2.6 gm/dL Albumin/Globulin Ratio 1.2 (1-2) Med Orders - Current: Current Medications Aspirin (Ecotrin) 325 mg PO BID [facility] Bisacodyl (Dulcolax) 5 mg PO DAILY PRN PRN Reason: Constipation Calcium Carbonate (Calcium Carbonate/Vitamin D 600 Mg-200 Unit) 2 tab PO DAILY [facility] Clonazepam (Klonopin) 0.5 mg PO BEDTIME [facility] Last Admin: 09/20/18 20:10 Dose: 0.5 mg Cyclobenzaprine HCl (Flexeril) 10 mg PO TID PRN PRN Reason: Spasms Last Admin: 09/20/18 23:51 Dose: 10 mg Docusate Sodium (Colace) 100 mg PO BID [facility] Last Admin: 09/20/18 20:10 Dose: 100 mg Famotidine (Pepcid) 20 mg PO Q12H [facility] Last Admin: 09/20/18 20:10 Dose: 20 mg Cefazolin Sodium/Dextrose 2 gm (/ Premix) 50 mls @ 100 mls/hr IV Q8H [facility] Stop: 09/21/18 10:29 Last Admin: 09/21/18 03:22 Dose: 100 mls/hr Ketorolac Tromethamine (Toradol) 15 mg IVPUSH Q6H PRN PRN Reason: Pain Last Admin: 09/21/18 03:58 Dose: 15 mg Magnesium Hydroxide (Milk Of Magnesia) 30 ml PO BID PRN PRN Reason: Constipation Morphine Sulfate (Morphine) 2 mg IVPUSH Q2H PRN PRN Reason: Breakthrough Pain Naloxone HCl (Narcan) 0.1 mg IVPUSH Q5M PRN PRN Reason: Oversedation Ondansetron HCl (Zofran) 4 mg IVPUSH Q6H PRN PRN Reason: Nausea/Vomiting Oxycodone/Acetaminophen (Percocet 325-5 Mg) 1 - 2 tab PO Q4H PRN PRN Reason: Pain Last Admin: 09/21/18 07:47 Dose: 2 tab Paroxetine HCl (Paxil) 20 mg PO DAILY [facility] Senna (Senna) 8.6 mg PO BID PRN PRN Reason: Constipation Venlafaxine HCl (Effexor Xr) 150 mg PO DAILY [facility] Discontinued Medications Acetaminophen (Tylenol) 975 mg PO ONETIME [facility] Stop: 09/20/18 16:00 Last Admin: 09/20/18 08:22 Dose: 975 mg Bupivacaine HCl (Marcaine 0.25%) Confirm Administered Dose 30 ml .ROUTE .STK- MED ONE Stop: 09/20/18 08:21 Last Admin: 09/20/18 10:17 Dose: 30 ml Cefazolin Sodium (Ancef) Confirm Administered Dose 2 gm .ROUTE .STK-MED ONE Stop: 09/20/18 08:14 Cefazolin Sodium (Ancef) Confirm Administered Dose 2 gm .ROUTE .STK-MED ONE Stop: 09/20/18 08:21 Last Admin: 09/20/18 10:14 Dose: 2 gm Morphine Sulfate 8 mg/Epinephrine HCl 0.3 mg/Cefuroxime Sodium 750 mg/Ketorolac Tromethamine 30 mg/Sodium Chloride 27.9 ml 0 mg .XX ONETIME ONE Stop: 09/20/18 10:06 Last Admin: 09/20/18 12:10 Dose: Not Given Dexamethasone (Dexamethasone) Confirm Administered Dose 8 mg .ROUTE .STK-MED ONE Stop: 09/20/18 08:14 Diphenhydramine HCl (Benadryl) 25 mg IVPUSH Q6H PRN PRN Reason: Pruritis Stop: 09/20/18 18:00 Epinephrine HCl (Adrenalin) Confirm Administered Dose 1 mg .ROUTE .STK-MED ONE Stop: 09/20/18 07:25 Fentanyl (Sublimaze) Confirm Administered Dose 100 mcg .ROUTE .STK-MED ONE Stop: 09/20/18 07:32 Fentanyl (Sublimaze) 50 mcg IVPUSH Q5M PRN PRN Reason: Pain Stop: 09/20/18 16:00 Lactated Ringer's (Ringers, Lactated) 1,000 mls @ 125 mls/hr IV ASDIRECTED [facility] Stop: 09/20/18 23:00 Last Admin: 09/20/18 08:40 Dose: 125 mls/hr Lidocaine HCl (Xylocaine-Mpf 1%) Confirm Administered Dose 4 mls @ as directed .ROUTE .ST-MED ONE Stop: 09/20/18 07:33 Lactated Ringer's (Ringers, Lactated) Confirm Administered Dose 1,000 mls @ as directed .ROUTE .STK-MED ONE Stop: 09/20/18 08:14 Iodine (Iodine 2% Mild Tincture) Confirm Administered Dose 30 ml .ROUTE .STK- MED ONE Stop: 09/20/18 08:21 Last Admin: 09/20/18 10:11 Dose: 18 ml Ketamine HCl (Ketalar) Confirm Administered Dose 500 mg .ROUTE .ST-MED ONE Stop: 09/20/18 07:32 Ketorolac Tromethamine (Toradol) Confirm Administered Dose 30 mg .ROUTE .STK- MED ONE Stop: 09/20/18 08:15 Lidocaine/Sodium Bicarbonate (Buffered Lidocaine 1% In Ns 8.4%) 0.25 ml IDERM ONETIME PRN PRN Reason: Prior to IV Start Stop: 09/20/18 18:00 Last Admin: 09/20/18 08:40 Dose: 0.25 ml Midazolam HCl (Versed 1 Mg/Ml) Confirm Administered Dose 2 mg .ROUTE .STEktron-MED ONE Stop: 09/20/18 07:32 Non-Formulary Medication (Ergocalciferol (Vitamin D2) [Vitamin D2]) 4,000 unit PO DAILY [facility] Ondansetron HCl (Zofran) Confirm Administered Dose 4 mg .ROUTE .STK-MED ONE Stop: 09/20/18 08:14 Ondansetron HCl (Zofran) 4 mg IVPUSH ONETIME PRN PRN Reason: Nausea/Vomiting Stop: 09/20/18 16:00 Oxycodone HCl (Oxycontin) 10 mg PO ONETIME [facility] Stop: 09/20/18 16:00 Last Admin: 09/20/18 08:21 Dose: 10 mg Pregabalin (Lyrica) 50 mg PO ONETIME [facility] Stop: 09/20/18 16:00 Last Admin: 09/20/18 08:22 Dose: 50 mg Propofol (Diprivan 20 Ml) Confirm Administered Dose 600 mg .ROUTE .STK-MED ONE Stop: 09/20/18 07:32 Ropivacaine (Naropin 0.5%) Confirm Administered Dose 30 ml .ROUTE .STK-MED ONE Stop: 09/20/18 07:25 Scopolamine (Transderm-Scop) 1.5 mg TRDERM Q72H ONE Stop: 09/20/18 08:54 Last Admin: 09/20/18 09:03 Dose: 1.5 mg Sodium Chloride (Saline Flush) 10 ml FLUSH ASDIRECTED PRN PRN Reason: Keep Vein Open Stop: 09/20/18 18:00 Tranexamic Acid (Cyklokapron) Confirm Administered Dose 1,000 mg .ROUTE .STK- MED ONE Stop: 09/20/18 08:20 Last Admin: 09/20/18 10:18 Dose: 1,000 mg Vancomycin HCl (Vancomycin) Confirm Administered Dose 1 gm .ROUTE .STK-MED ONE Stop: 09/20/18 08:20 Last Admin: 09/20/18 10:20 Dose: 1 gm - Exam Wound/Incisions: Dressing Dry and Intact General: Alert, Cooperative, No Acute Distress Lungs: Normal Respiratory Effort Extremities: Other (NVS intact for BLE. Clarence's negative.) - Problem List Review Problem List Initiated/Reviewed/Updated: Yes - My Orders Last 24 Hours: Active Orders 24 hr Category Date Time Status Cooling Warming Measures [RC] ASDIRECTED Care 09/20/18 10:01 Inactive Notify Provider [RC] ASDIRECTED Care 09/20/18 10:01 Active Pulse Oximetry [RC] ASDIRECTED Care 09/20/18 10:01 Active Ready for Discharge [RC] PER UNIT ROUTINE Care 09/21/18 07:59 Ordered Verify Patient Consent Obtain [RC] ASDIRECTED Care 09/20/18 07:00 Inactive Regular Diet [DIET] Diet 09/20/18 Lunch Active Aspirin [Ecotrin] Med 09/21/18 09:00 Active 325 mg PO BID Calcium Carbonate/Vitamin D3 [Calcium Carbonate/Vitamin Med 09/21/18 09:00 Active D 600 MG-200 Unit] 2 tab PO DAILY ClonazePAM [KlonoPIN] Med 09/20/18 21:00 Active 0.5 mg PO BEDTIME Docusate Sodium [Colace] Med 09/20/18 21:00 Active 100 mg PO BID Famotidine [Pepcid] Med 09/20/18 21:00 Active 20 mg PO Q12H PARoxetine [Paxil] Med 09/21/18 09:00 Active 20 mg PO DAILY Venlafaxine [Effexor XR] Med 09/21/18 09:00 Active 150 mg PO DAILY ceFAZolin [Ancef] 2 gm Med 09/20/18 18:00 Active Premix Bag 1 bag IV Q8H Medication Administration Instruction [OM.PC] Routine Ot 09/20/18 07:00 Ordered Medication Orders Aspirin (Ecotrin) 325 mg PO BID [facility] Bisacodyl (Dulcolax) 5 mg PO DAILY PRN PRN Reason: Constipation Calcium Carbonate (Calcium Carbonate/Vitamin D 600 Mg-200 Unit) 2 tab PO DAILY [facility] Clonazepam (Klonopin) 0.5 mg PO BEDTIME [facility] Last Admin: 09/20/18 20:10 Dose: 0.5 mg Cyclobenzaprine HCl (Flexeril) 10 mg PO TID PRN PRN Reason: Spasms Last Admin: 09/20/18 23:51 Dose: 10 mg Docusate Sodium (Colace) 100 mg PO BID [facility] Last Admin: 09/20/18 20:10 Dose: 100 mg Famotidine (Pepcid) 20 mg PO Q12H [facility] Last Admin: 09/20/18 20:10 Dose: 20 mg Cefazolin Sodium/Dextrose 2 gm (/ Premix) 50 mls @ 100 mls/hr IV Q8H [facility] Stop: 09/21/18 10:29 Last Admin: 09/21/18 03:22 Dose: 100 mls/hr Infusion: 09/20/18 17:59 Dose: 100 mls/hr Admin: 09/20/18 17:29 Dose: 100 mls/hr Ketorolac Tromethamine (Toradol) 15 mg IVPUSH Q6H PRN PRN Reason: Pain Last Admin: 09/21/18 03:58 Dose: 15 mg Admin: 09/20/18 19:30 Dose: 15 mg Magnesium Hydroxide (Milk Of Magnesia) 30 ml PO BID PRN PRN Reason: Constipation Morphine Sulfate (Morphine) 2 mg IVPUSH Q2H PRN PRN Reason: Breakthrough Pain Naloxone HCl (Narcan) 0.1 mg IVPUSH Q5M PRN PRN Reason: Oversedation Ondansetron HCl (Zofran) 4 mg IVPUSH Q6H PRN PRN Reason: Nausea/Vomiting Oxycodone/Acetaminophen (Percocet 325-5 Mg) 1 - 2 tab PO Q4H PRN PRN Reason: Pain Last Admin: 09/21/18 07:47 Dose: 2 tab Admin: 09/21/18 03:57 Dose: 2 tab Admin: 09/20/18 23:51 Dose: 2 tab Admin: 09/20/18 19:29 Dose: 2 tab Admin: 09/20/18 14:30 Dose: 2 tab Paroxetine HCl (Paxil) 20 mg PO DAILY [facility] Senna (Senna) 8.6 mg PO BID PRN PRN Reason: Constipation Venlafaxine HCl (Effexor Xr) 150 mg PO DAILY [facility] - Assessment Assessment (Free Text/Narrative):: POD#1 - right TKA - Plan Plan (Free Text/Narrative):: 1. Hgb 9.9. 2. 325mg ASA PO BID, frequent mobility, discussed TEDs use. 3. Discharge to home today. The pt will have the assistance of her . 4. Outpatient therapy. The pt's case was discussed with Dr. Garcia.
[2018-09-21] MEDS: Docusate Sodium 100 MG Cap PO SCH (08:40)
[2018-09-21] MEDS: Famotidine 20 MG Tab PO SCH (08:40)
--- NOTE | 2018-09-21 08:56 | PCM48HPAN ---
Post Anesthesia Note - EVALUATION WITHIN 48HRS OF ANESTHETIC Vital Signs in Normal Range: Yes Patient Participated in Evaluation: Yes Respiratory Function Stable: Yes Airway Patent: Yes Cardiovascular Function Stable: Yes Hydration Status Stable: Yes Pain Control Satisfactory: Yes (states night was not too bad- taking po pain meds) Nausea and Vomiting Control Satisfactory: Yes Mental Status Recovered: Yes Pulse Rate: 76 Resp Rate: 12 Temperature: 98.4 F Blood Pressure: 96/57
[2018-09-21] MEDS ORDERED: Venlafaxine 75 MG Cap.ER PO SCH (09:00)
[2018-09-21] MEDS ORDERED: ERGOCALCIFEROL PO SCH (09:00)
[2018-09-21] MEDS ORDERED: Aspirin 325 MG Tab.EC PO SCH (09:00)
[2018-09-21] MEDS ORDERED: PARoxetine 20 MG Tab PO SCH (09:00)
[2018-09-21] MEDS ORDERED: Calcium Carbonate/Vitamin D3 600 MG-200 Units Tab PO SCH (09:00)
[2018-09-21] MEDS: Cyclobenzaprine 10 MG Tab PO PRN (11:56)
--- NOTE | 2018-09-21 12:37 | PCM.DCSUM1 ---
Discharge Summary - Hospital Course Brief History: Edmar johnson 48 yo female who underwent right TKA with Dr. Garcia on 09-20-2018. The procedure was completed under spinal anesthesia with sedation. The pt tolerated the procedure well and was admitted to the Medical-Surgical Unit. Medical management was provided by the Hospitalist service. The pt's Hospital course was uneventful. The pt's Hgb on POD#1 was 9.9. On POD#1, 325mg ASA BID was initiated for VTE prophylaxis. SCDs and TEDs were also ordered. A Mepilex dressing was placed at the incision site at the time of surgery and remained clean and dry. The pt participated in P.T. and O.T. and progressed well. The pt was allowed to WBAT. On POD#1, the pt was deemed appropriate to discharge to home with her . - Discharge Data Discharge Date: 09/21/18 Discharge Disposition: Home, Self-Care 01 Condition: Good - Patient Summary/Data Consults: Consultations 09/20/18 06:52 OT Evaluation and Treatment [CONS] Routine PT Evaluation and Treatment [CONS] Routine 09/20/18 06:53 Consult to Physician [CONS] Routine - Patient Instructions Diet: Usual Diet as Tolerated Activity: Apply Ice, As Tolerated, Elevate Extremity, Full Weight Bearing Driving: Do Not Drive Showering/Bathing: May Shower Wound/Incision Care: Keep Operative Site/Wound Site Clean and Dry, Do NOT Change Dressing Notify Provider of: Fever, Increased Pain, Swelling and Redness, Drainage, Nausea and/or Vomiting Other/Special Instructions: Please get up and moving around EVERY HOUR while awake. This helps to prevent blood clots. Please use your walker and have help with mobility as needed. Take a short walk in your home every hour while awake. Please take 325mg Aspirin TWICE daily. The aspirin is being used for blood clot prevention and not for pain management so please do not miss a dose of the medication. You could use a medication like Zantac or Pepcid and a medication like Prilosec or Nexium to protect your stomach while you are using the aspirin. At home, please complete the exercises that you learned during the Hospital stay. Schedule for physical therapy. Use the pain medication as needed. The medication may cause drowsiness and constipation. Contact your primary care provider for instructions if you are constipated. You may use a stool softener like docusate sodium or Colace 100mg twice daily and/or a laxative like Miralax daily for constipation. Increase your water and fiber intake while you are using the pain medication. Please try to wean from use of the pain medication as soon as able. Please do not use other medications that may cause drowsiness (other pain medications, anxiety pills, cold medications, sleeping pills, etc) while using the prescription pain medication. Do not use alcohol while using the pain medication. Wear the NESSA hose during the day and you may remove these at night. Elevate the limb to decrease swelling. Place ice to the area often. Place a towel between your skin and the blue pad. Use the incentive spirometer often. Take deep breaths throughout the day. Please keep the dressing in place until follow-up. Notify the Clinic if the dressing becomes saturated. Increase your protein intake while you are healing. If you have diabetes, please closely monitor your blood sugars and notify your primary care provider with abnormal values. Elevated blood sugars increases the risk of infection. Call the Clinic with questions or concerns - [phone]. - Discharge Plan *PRESCRIPTION DRUG MONITORING PROGRAM REVIEWED*: No *COPY OF PRESCRIPTION DRUG MONITORING REPORT IN PATIENT [place]: No Prescriptions/Med Rec: Acetaminophen/oxyCODONE [Percocet 325-5 MG] 1 - 2 tab PO Q6H PRN #60 tablet PRN Reason: Pain Aspirin [Ecotrin] 325 mg PO BID #84 tab.ec Cyclobenzaprine [Flexeril] 10 mg PO BID PRN #30 tablet PRN Reason: Spasms Home Medications: Home Meds PARoxetine HCl [Paxil] 20 mg PO DAILY 08/13/17 [History] Venlafaxine [Effexor] 150 mg PO DAILY 08/13/17 [History] ClonazePAM [KlonoPIN] 0.25 mg PO BEDTIME 03/13/18 [History] Calcium Carb/Magnesium Oxid/D3 [Calcium Magnesium + D] 2 tab PO DAILY 09/17/18 [ History] Ergocalciferol (Vitamin D2) [Vitamin D2] 4,000 unit PO DAILY 09/17/18 [History] Acetaminophen/oxyCODONE [Percocet 325-5 MG] 1 - 2 tab PO Q6H PRN #60 tablet [Rx] Aspirin [Ecotrin] 325 mg PO BID #84 tab.ec 09/20/18 [Rx] Bisacodyl [Dulcolax] 5 mg PO DAILY PRN tablet 09/20/18 [Rx] Cyclobenzaprine [Flexeril] 10 mg PO BID PRN #30 tablet 09/20/18 [Rx] Docusate Sodium [Colace] 100 mg PO BID cap 09/20/18 [Rx] Famotidine [Pepcid] 20 mg PO Q12H tablet 09/20/18 [Rx] Magnesium Hydroxide [Milk of Magnesia] 30 ml PO BID PRN cup 09/20/18 [Rx] Sennosides [Senna] 8.6 mg PO BID PRN tablet 09/20/18 [Rx] Patient Handouts: Total Knee Replacement, Care After, Surgical Site Infections FAQs - GUO Referrals: Fang Mcarthur PA-C [Physician Orthodontic Laboratory Technician] - (Follow up at [facility] on: 09/28/18 at 9:15AM 10/05/18 at 9:15AM) - Discharge Summary/Plan Comment DC Time >30 min.: No - Patient Data Vitals - Most Recent: Last Vital Signs Temp 97.5 F 09/21/18 12:12 Pulse 79 09/21/18 12:12 Resp 16 09/21/18 12:12 BP 109/57 L 09/21/18 12:12 Pulse Ox 95 09/21/18 12:12 Weight - Most Recent: 146 lb 9 oz I&O - Last 24 hours: Intake & Output 09/20/18 09/21/18 09/21/18 22:59 06:59 14:59 Intake Total 1600 1200 120 Output Total 3650 Balance 1600 -2450 120 Lab Results - Last 24 hrs: Laboratory Results - last 24 hr 09/21/18 09/21/18 Range/Units 05:10 05:10 WBC 9.20 (3.98-10.04) K/mm3 RBC 3.50 L (3.98-5.22) M/mm3 Hgb 9.9 L (11.2-15.7) gm/L Hct 31.7 L (34.1-44.9) % MCV 90.6 (79.4-94.8) fl MCH 28.3 (25.6-32.2) pg MCHC 31.2 L (32.2-35.5) g/dl RDW Std Deviation 45.9 (36.4-46.3) fL Plt Count 229 (182-369) K/mm3 MPV 10.4 (9.4-12.3) fl Sodium 140 (136-145) mEq/L Potassium 4.0 (3.5-5.1) mEq/L Chloride 105 (98-107) mEq/L Carbon Dioxide 27 (21-32) mEq/L Anion Gap 12.0 (5-15) BUN 13 (7-18) mg/dL Creatinine 0.8 (0.55-1.02) mg/dL Est Cr Clr Drug Dosing 66.31 mL/min Estimated GFR (MDRD) > 60 (>60) mL/min BUN/Creatinine Ratio 16.3 (14-18) Glucose 167 H (74-106) mg/dL Calcium 8.6 (8.5-10.1) mg/dL Total Bilirubin 0.1 L (0.2-1.0) mg/dL AST 18 (15-37) U/L ALT 25 (14-59) U/L Alkaline Phosphatase 67 (46-116) U/L Total Protein 5.7 L (6.4-8.2) g/dl Albumin 3.1 L (3.4-5.0) g/dl Globulin 2.6 gm/dL Albumin/Globulin Ratio 1.2 (1-2) Med Orders - Current: Current Medications Aspirin (Ecotrin) 325 mg PO BID [facility] Last Admin: 09/21/18 08:40 Dose: 325 mg Bisacodyl (Dulcolax) 5 mg PO DAILY PRN PRN Reason: Constipation Calcium Carbonate (Calcium Carbonate/Vitamin D 600 Mg-200 Unit) 2 tab PO DAILY [facility] Last Admin: 09/21/18 08:40 Dose: 2 tab Clonazepam (Klonopin) 0.5 mg PO BEDTIME [facility] Last Admin: 09/20/18 20:10 Dose: 0.5 mg Cyclobenzaprine HCl (Flexeril) 10 mg PO TID PRN PRN Reason: Spasms Last Admin: 09/21/18 11:56 Dose: 10 mg Docusate Sodium (Colace) 100 mg PO BID [facility] Last Admin: 09/21/18 08:40 Dose: 100 mg Famotidine (Pepcid) 20 mg PO Q12H [facility] Last Admin: 09/21/18 08:40 Dose: 20 mg Ketorolac Tromethamine (Toradol) 15 mg IVPUSH Q6H PRN PRN Reason: Pain Last Admin: 09/21/18 03:58 Dose: 15 mg Magnesium Hydroxide (Milk Of Magnesia) 30 ml PO BID PRN PRN Reason: Constipation Morphine Sulfate (Morphine) 2 mg IVPUSH Q2H PRN PRN Reason: Breakthrough Pain Naloxone HCl (Narcan) 0.1 mg IVPUSH Q5M PRN PRN Reason: Oversedation Ondansetron HCl (Zofran) 4 mg IVPUSH Q6H PRN PRN Reason: Nausea/Vomiting Oxycodone/Acetaminophen (Percocet 325-5 Mg) 1 - 2 tab PO Q4H PRN PRN Reason: Pain Last Admin: 09/21/18 11:57 Dose: 2 tab Paroxetine HCl (Paxil) 20 mg PO DAILY [facility] Last Admin: 09/21/18 08:40 Dose: 20 mg Senna (Senna) 8.6 mg PO BID PRN PRN Reason: Constipation Venlafaxine HCl (Effexor Xr) 150 mg PO DAILY [facility] Last Admin: 09/21/18 08:40 Dose: 150 mg Discontinued Medications Acetaminophen (Tylenol) 975 mg PO ONETIME [facility] Stop: 09/20/18 16:00 Last Admin: 09/20/18 08:22 Dose: 975 mg Bupivacaine HCl (Marcaine 0.25%) Confirm Administered Dose 30 ml .ROUTE .STK- MED ONE Stop: 09/20/18 08:21 Last Admin: 09/20/18 10:17 Dose: 30 ml Cefazolin Sodium (Ancef) Confirm Administered Dose 2 gm .ROUTE .STK-MED ONE Stop: 09/20/18 08:14 Cefazolin Sodium (Ancef) Confirm Administered Dose 2 gm .ROUTE .STK-MED ONE Stop: 09/20/18 08:21 Last Admin: 09/20/18 10:14 Dose: 2 gm Morphine Sulfate 8 mg/Epinephrine HCl 0.3 mg/Cefuroxime Sodium 750 mg/Ketorolac Tromethamine 30 mg/Sodium Chloride 27.9 ml 0 mg .XX ONETIME ONE Stop: 09/20/18 10:06 Last Admin: 09/20/18 12:10 Dose: Not Given Dexamethasone (Dexamethasone) Confirm Administered Dose 8 mg .ROUTE .STK-MED ONE Stop: 09/20/18 08:14 Diphenhydramine HCl (Benadryl) 25 mg IVPUSH Q6H PRN PRN Reason: Pruritis Stop: 09/20/18 18:00 Epinephrine HCl (Adrenalin) Confirm Administered Dose 1 mg .ROUTE .STK-MED ONE Stop: 09/20/18 07:25 Fentanyl (Sublimaze) Confirm Administered Dose 100 mcg .ROUTE .STK-MED ONE Stop: 09/20/18 07:32 Fentanyl (Sublimaze) 50 mcg IVPUSH Q5M PRN PRN Reason: Pain Stop: 09/20/18 16:00 Lactated Ringer's (Ringers, Lactated) 1,000 mls @ 125 mls/hr IV ASDIRECTED [facility] Stop: 09/20/18 23:00 Last Admin: 09/20/18 08:40 Dose: 125 mls/hr Cefazolin Sodium/Dextrose 2 gm (/ Premix) 50 mls @ 100 mls/hr IV Q8H [facility] Stop: 09/21/18 10:29 Last Admin: 09/21/18 09:45 Dose: 100 mls/hr Lidocaine HCl (Xylocaine-Mpf 1%) Confirm Administered Dose 4 mls @ as directed .ROUTE .ST-MED ONE Stop: 09/20/18 07:33 Lactated Ringer's (Ringers, Lactated) Confirm Administered Dose 1,000 mls @ as directed .ROUTE .ST-MED ONE Stop: 09/20/18 08:14 Iodine (Iodine 2% Mild Tincture) Confirm Administered Dose 30 ml .ROUTE .STK- MED ONE Stop: 09/20/18 08:21 Last Admin: 09/20/18 10:11 Dose: 18 ml Ketamine HCl (Ketalar) Confirm Administered Dose 500 mg .ROUTE .STK-MED ONE Stop: 09/20/18 07:32 Ketorolac Tromethamine (Toradol) Confirm Administered Dose 30 mg .ROUTE .STK- MED ONE Stop: 09/20/18 08:15 Lidocaine/Sodium Bicarbonate (Buffered Lidocaine 1% In Ns 8.4%) 0.25 ml IDERM ONETIME PRN PRN Reason: Prior to IV Start Stop: 09/20/18 18:00 Last Admin: 09/20/18 08:40 Dose: 0.25 ml Midazolam HCl (Versed 1 Mg/Ml) Confirm Administered Dose 2 mg .ROUTE .ST-MED ONE Stop: 09/20/18 07:32 Non-Formulary Medication (Ergocalciferol (Vitamin D2) [Vitamin D2]) 4,000 unit PO DAILY [facility] Ondansetron HCl (Zofran) Confirm Administered Dose 4 mg .ROUTE .STK-MED ONE Stop: 09/20/18 08:14 Ondansetron HCl (Zofran) 4 mg IVPUSH ONETIME PRN PRN Reason: Nausea/Vomiting Stop: 09/20/18 16:00 Oxycodone HCl (Oxycontin) 10 mg PO ONETIME [facility] Stop: 09/20/18 16:00 Last Admin: 09/20/18 08:21 Dose: 10 mg Pregabalin (Lyrica) 50 mg PO ONETIME [facility] Stop: 09/20/18 16:00 Last Admin: 09/20/18 08:22 Dose: 50 mg Propofol (Diprivan 20 Ml) Confirm Administered Dose 600 mg .ROUTE .ST-MED ONE Stop: 09/20/18 07:32 Ropivacaine (Naropin 0.5%) Confirm Administered Dose 30 ml .ROUTE .ST-MED ONE Stop: 09/20/18 07:25 Scopolamine (Transderm-Scop) 1.5 mg TRDERM Q72H ONE Stop: 09/20/18 08:54 Last Admin: 09/20/18 09:03 Dose: 1.5 mg Sodium Chloride (Saline Flush) 10 ml FLUSH ASDIRECTED PRN PRN Reason: Keep Vein Open Stop: 09/20/18 18:00 Tranexamic Acid (Cyklokapron) Confirm Administered Dose 1,000 mg .ROUTE .STK- MED ONE Stop: 09/20/18 08:20 Last Admin: 09/20/18 10:18 Dose: 1,000 mg Vancomycin HCl (Vancomycin) Confirm Administered Dose 1 gm .ROUTE .STK-MED ONE Stop: 09/20/18 08:20 Last Admin: 09/20/18 10:20 Dose: 1 gm
--- NOTE | 2018-09-24 08:50 | PCM.OPNOTE ---
- General Post-Op/Procedure Note Date of Surgery/Procedure: 09/20/18 Operative Procedure(s): right total knee arthroplasty Pre Op Diagnosis: right knee osteoarthrosis Post-Op Diagnosis: Same Anesthesia Technique: Local, MAC, Spinal Primary Surgeon: Berny Garcia Anesthesia Provider: Fern [employer] Assistant: Fang Mcarthur [employer] Assistant: Jamilah De Anda EBAdrian in mLs: 100 Complications: None Condition: Good Free Text/Narrative:: size 3/3 9mm 29x9
--- NOTE | 2018-09-24 09:16 | OR ---
DATE OF OPERATION: 09/20/2018 SURGEON: Berny Garcia MD OPERATION PERFORMED: Right total knee arthroplasty. PREOPERATIVE DIAGNOSIS: Right knee osteoarthrosis. POSTOPERATIVE DIAGNOSIS: Right knee osteoarthrosis. ANESTHESIA: Local MAC with spinal. ANESTHESIA PROVIDER: Nikki Karimi. [employer] ARCHITECT: Fang Mcarthur PA-C; and Jamilah De Anda LPN. ESTIMATED BLOOD LOSS: 100 mL. COMPLICATIONS: None. CONDITION: Stable. IMPLANTS: 1. Ning size 3 press-fit CR femur. 2. Holland size 3 press-fit tibial base plate. 3. Holland size 3, 9 mm CS polyethylene insert. 4. Holland size 29 x 9 mm press fit patella. DESCRIPTION OF PROCEDURE: The patient was identified in the preop holding area. Proper site was marked and identified by the surgeon. The patient was taken back to the operating theater. After adequate anesthesia, the patient's right lower extremity had a nonsterile tourniquet applied and it was sterilely prepped and draped in the usual sterile fashion. OR time-out was performed. The patient received 2 g IV Ancef. At this time, the right lower extremity was exsanguinated. Tourniquet was insufflated to 300 mmHg. Standard medial parapatellar incision was made. Medial parapatellar arthrotomy was created. Deep fibers of the MCL were raised and anterior fat pad was resected. At this time, attention was turned to the patella. Patella measured 22, it was resected to a 13 for 29 x 9 mm patella. Drill holes were then drilled and found to be in adequate position. The drill was then drilled in the distal femur and the intramedullary distal femoral cutting guide was then placed. 8 mm was resected off the distal femur and was found to be an adequate resection. Sizing guide was placed. It was found to be a size 3 press-fit CR femur that was shown on the implant record at the beginning of this dictation. The drill holes were drilled for the epicondylar axis using Whitesides line and epicondyles as reference. At this time, the 4-in - 1 cutting block was placed. An anterior posterior and anterior and posterior chamfer cuts were then completed. Attention was turned to the tibia. The posterior medial lateral retractors were placed. The extramedullary tibial guide was placed. It was placed in the old footprint of the ACL. It was aligned with the center of the ankle and 0 degrees of slope, 9 mm was then resected off the unaffected side. There was found to be an acceptable reduction. At this time, posterior osteophytes were removed along with medial and lateral meniscus. A trial implant was placed with a correct sized tibia that was mentioned at the beginning of the dictation. A Ning size 3, 9 mm CS polyethylene insert was then placed. The patient's knee was brought through range of motion. The patella was tracking centrally and was stable to varus and valgus stress. Alignment was found to be roughly at 0 degrees. The tibia was stamped and drilled in proper rotation. The universal tibial base plate was impacted in place. Next, the Ning size 3 press-fit CR femur impacted into place and the Holland size 3, 9 mm CS polyethylene insert was placed. The patient's knee was brought into full extension. The patella was then press-fit in place at this time. Tourniquet was deflated. One liter dilute Betadine solution was irrigated through the knee along with 3 L of pulse lavage irrigation with Ancef. Periarticular injection was then completed. The patient's knee was brought through a range of motion. Knee was found to be stable to varus valgus stress, the patella was tracking centrally with full range of motion. At this time, a #2 barbed suture was used for closure of the medial parapatellar arthrotomy. Topical tranexamic acid was placed. 2-0 Vicryl was used subcutaneously, Prineo was used for the skin. The patient tolerated the procedure well and was sent to the PACU in stable condition. MIYA /[id number] GABRIELA
== END 2018-09-21 12:58 | disposition home or self-care (01) | DRG 470 ==
LOC: JD.SDS 08:12 → JD.MS 08:14 → JD.SDS 13:12
PROVIDERS: ADMIT Orthopaedic Surgery; ATTEND Orthopaedic Surgery
PROC: 0SRC0JA Replacement of Right Knee Joint with Synthetic Substitute, Uncemented, Open Approach (ICD-10-PCS; principal; 2018-09-20)
PROC: 3E0T3BZ Introduction of Anesthetic Agent into Peripheral Nerves and Plexi, Percutaneous Approach (ICD-10-PCS; 2018-09-20)
DX: M17.11 Unilateral primary osteoarthritis, right knee (principal); M25.761 Osteophyte, right knee; F32.9 Major depressive disorder, single episode, unspecified; G89.29 Other chronic pain; M51.16 Intervertebral disc disorders with radiculopathy, lumbar region; H54.7 Unspecified visual loss; G89.18 Other acute postprocedural pain; F41.9 Anxiety disorder, unspecified; Z88.6 Allergy status to analgesic agent; Z90.710 Acquired absence of both cervix and uterus; Z79.899 Other long term (current) drug therapy
CPT/HCPCS: 01402; 36415; 64450; 73560-26-RT; 73560-RT; 80053; 85027; 97110-GP; 97116-GP; 97161-GP; 97165-GO; 97535-GO; A9270-GY; C1776; J0171; J0690; J0697; J1100; J1885; J2001; J2250; J2270; J2405; J2704; J2795; J3010; J3370; J3490; J7120